=== PATIENT | male | born 1960 | race Hispanic/Latino ===

== ENCOUNTER → 2022-05-21 | Outpatient (CLI) | payer BC | END | disposition home or self-care (01) | LOC: SHCH 08:30 | PROVIDERS: ATTEND Internal Medicine Cardiovascular Disease | DX: I25.5 Ischemic cardiomyopathy (principal) | CPT/HCPCS: 93306 ==

== ENCOUNTER → 2023-07-29 | Outpatient (CLI) | payer BC | END | disposition home or self-care (01) | LOC: SHCH 08:37 | PROVIDERS: ATTEND Internal Medicine Cardiovascular Disease | DX: I70.1 Atherosclerosis of renal artery (principal); I10 Essential (primary) hypertension | CPT/HCPCS: 93975 ==

== ENCOUNTER → 2024-03-30 | Outpatient (CLI) | payer BC ==
[2024-03-30 12:41] LABS: CHOLESTEROL 116 mg/dL (<200); HDL CHOLESTEROL 56 mg/dL (29-71); LDL DIRECT 53 mg/dL (0-99); TRIGLYCERIDES 114 mg/dL (30-200)
== END | disposition home or self-care (01) ==
LOC: LAB 09:41
PROVIDERS: ATTEND Internal Medicine Cardiovascular Disease
DX: E78.5 Hyperlipidemia, unspecified (principal)
CPT/HCPCS: 36415; 80061

== ENCOUNTER → 2025-01-30 | Outpatient (CLI) | payer OTHER ==
[2025-01-30] MEDS: REGADENOSON 0.4 MG/5 ML PF SYG IVP ONE (11:56)
--- NOTE | 2025-01-30 13:50 | HMCSR ---
APPROVED REPORT Height: 5 ft 7in Weight: 218 lbs TEST INDICATIONS CAD The imaging protocol used to acquire images was Rest Tc-99m/stress Tc-99m 1 day Consent: The procedure was explained and understood by the patient. Informerd consent was witnessed Jessica Hunter RN First, low dose rest was performed then high dose stress. RESTING DATA: The resting ekg shows: NSR Rest SPECT myocardial perfusion imaging was performed in supine position minutes following the intra venous injection of 11 mCi of Tc-99 Sestamibi. Time of rest injection: 09:25: Date: 01/30/2025 PHARMACOLOGIC STRESS: Pharmacologic stress test was performed by injecting regadenoson 0.4 mg IV push followed by the intra venous injection of 29 mCi of Tc-99 Sestamibi. Time of stress injection: 10:55: Date: 01/30/2025 Heart Rate at time of stress injection: 64 bpm. Gated Stress SPECT was performed 60 minutes after stress injection. The images were gated to evaluate regional wall motion and calculate left ventricular ejection fracti on. STRESS DETAILS Reason for Termination: Infusion complete Stress Symptoms: Dyspnea Max HR Achieved: 110 bpm % of APMHR Achieved: 83 Max Blood Pressure: 183/90 mmHg Stress ECG: NSR Conclusion No ischemia No infarct LV ejection fraction 77% Normal LV wall motion Normal LV size at rest and stress No increased lung uptake
== END | disposition home or self-care (01) ==
LOC: RAH 08:54
PROVIDERS: ATTEND Internal Medicine Cardiovascular Disease
DX: I25.10 Atherosclerotic heart disease of native coronary artery without angina pectoris (principal)
CPT/HCPCS: 78452; 93017; J2785; A9500 ×2